=== PATIENT | male | born 1955 | race Caucasian/White ===

== ENCOUNTER → 2017-03-16 | Outpatient (CLI) | payer OTHER ==
[2017-03-16 08:10] LABS: HEMOGLOBIN 15.9 g/dL (14.1-18.0); LYMPH # 2.2 K/mm3 (0.7-4.5); LYMPH % 25.5 % (10-50)
[2017-03-16 08:49] LABS: BILIRUBIN, INDIRECT 0.73 mg/dL (0-0.9); BUN 18 mg/dL (7-18); GFR (ESTIMATED) 76 ML/MIN (>60)
== END ==
LOC: LAB 07:25
PROVIDERS: Internal Medicine
DX: E11.9 Type 2 diabetes mellitus without complications (principal); I10 Essential (primary) hypertension; E78.5 Hyperlipidemia, unspecified; J44.9 Chronic obstructive pulmonary disease, unspecified; I49.1 Atrial premature depolarization